=== PATIENT | female | born 1940 | race Caucasian/White ===

== ENCOUNTER 2021-10-04 07:38 | Inpatient (IN) | payer MEDICARE, MEDICAID ==
[~2021-10-04] VITALS: Ht 162.6 cm; Wt 59.9 kg
[2021-10-04] MEDS ORDERED: VANCOMYCIN 1 G PREMIX 200 ML IV ONE (08:15)
[2021-10-04] MEDS ORDERED: SODIUM CHLORIDE 0.9% 1000ML BAG (SEPSIS BOLUS) IV ONE (08:15)
[2021-10-04 08:39] LABS: BASOPHILS % 1.4 % (0.0-2.0); EOSINOPHILS % 4.2 % (0.0-5.0); HEMATOCRIT. 41.8 % (36.0-48.0); HEMOGLOBIN. 14.1 g/dL (12.0-16.0); LYMPHOCYTES % 21.9 % (20.0-50.0); MEAN CORPUSCULAR HEMOGLOBIN 31.6 pg (28.0-32.0); MEAN CORPUSCULAR VOLUME 93.6 fL (81.0-99.0); MEAN PLATELET VOLUME 10.3 fl (7.4-10.4); MONOCYTES % 14.4 % (2.0-8.0); NEUTROPHILS % 58.1 % (40.0-76.0); PLATELET 241 x1000/uL (130-400); RED BLOOD CELL COUNT 4.47 mill/uL (4.2-5.4); RED CELL DISTRIBUTION WIDTH 14.2 % (11.6-14.6)
[2021-10-04 08:46] LABS: CHLORIDE 104 mEq/L (98-107)
[2021-10-04 09:10] LABS: CLARITY URINE CLEAR (CLEAR); COLOR URINE YELLOW (YELLOW); KETONES URINE NEGATIVE (NEGATIVE); LEUKOCYTE ESTERASE URINE TRACE (NEGATIVE); NITRITE URINE POSITIVE (NEGATIVE); OCCULT BLOOD URINE NEGATIVE (NEGATIVE); PH URINE 6.5 (4.5-8.0); PROTEIN URINE NEGATIVE (NEGATIVE); SPECIFIC GRAVITY URINE 1.019 (1.005-1.030); UROBILINOGEN URINE 0.2 E.U./dL (0.2-1.0)
[2021-10-04] MEDS ORDERED: DIATR MEGLU/DIATRIZOATE SOLN 30ML ONE (09:40)
[2021-10-04 16:00] VITALS: BP_SYST 132; BP_SYST 144; BP_DIAS 76; BP_DIAS 81
[2021-10-04 20:00] VITALS: BP 134/72
[2021-10-04 20:03] VITALS: BP 132/76
[2021-10-04] MEDS ORDERED: ONDANSETRON HCL 4MG/2ML INJ IV PRN (20:45)
[2021-10-04] MEDS ORDERED: ACETAMINOPHEN 650MG SUPP PR PRN ×2 (20:45)
[2021-10-04] MEDS: DEXT 5%/0.45% NACL 1000ML 1,000 ML IV SCH (22:36)
[2021-10-05] VITALS: BP 128/68
[2021-10-05 07:01] LABS: HEMATOCRIT. 39.1 % (36.0-48.0); HEMOGLOBIN. 13.5 g/dL (12.0-16.0); MEAN CORPUSCULAR HEMOGLOBIN 32.4 pg (28.0-32.0); MEAN PLATELET VOLUME 10.6 fl (7.4-10.4); PLATELET 246 x1000/uL (130-400); RED BLOOD CELL COUNT 4.16 mill/uL (4.2-5.4); RED CELL DISTRIBUTION WIDTH 14.2 % (11.6-14.6)
[2021-10-05 07:07] LABS: CHLORIDE 105 mEq/L (98-107)
[2021-10-05 08:00] VITALS: BP 122/84
[2021-10-05] MEDS: DEXT 5%/0.45% NACL 1000ML 1,000 ML IV SCH ×2 (09:33→23:42)
[2021-10-05 12:00] VITALS: BP 124/74
[2021-10-05 14:33] LABS: PLATELET ESTIMATE NORMAL
[2021-10-05] MEDS ORDERED: POTASSIUM CHLORIDE INJ 40 MEQ in DEXT 5% WATER 250 ML IV ONE (15:00)
[2021-10-05] MEDS ORDERED: DIATR MEGLU/DIATRIZOATE SOLN 30ML ONE (15:51)
[2021-10-05 16:00] VITALS: BP 147/76
[2021-10-05] MEDS ORDERED: LEVOFLOXACIN 250MG PREMIX 50 ML IV SCH (17:00)
[2021-10-05] MEDS: KCL 20MEQ/100ML PREMIX 100 ML IV SCH ×2 (17:48→23:42)
[2021-10-05 20:00] VITALS: BP 142/91
[2021-10-06] VITALS: BP 142/92
[2021-10-06 04:00] VITALS: BP 124/80
[2021-10-06 08:00] VITALS: BP 142/77
[2021-10-06 08:30] LABS: BASOPHILS % 0.6 % (0.0-2.0); EOSINOPHILS % 1.8 % (0.0-5.0); HEMATOCRIT. 36.5 % (36.0-48.0); HEMOGLOBIN. 12.3 g/dL (12.0-16.0); LYMPHOCYTES % 16.2 % (20.0-50.0); MEAN CORPUSCULAR HEMOGLOBIN 31.8 pg (28.0-32.0); MEAN CORPUSCULAR VOLUME 94.3 fL (81.0-99.0); MEAN PLATELET VOLUME 10.2 fl (7.4-10.4); MONOCYTES % 12.6 % (2.0-8.0); NEUTROPHILS % 68.8 % (40.0-76.0); PLATELET 254 x1000/uL (130-400); RED BLOOD CELL COUNT 3.87 mill/uL (4.2-5.4)
[2021-10-06 08:43] LABS: CHLORIDE 108 mEq/L (98-107)
[2021-10-06 12:00] VITALS: BP 158/87
[2021-10-06] MEDS: DEXT 5%/0.45% NACL 1000ML 1,000 ML IV SCH (12:55)
[2021-10-06] MEDS: SULFAMETHOXAZOLE/TRIMETHOPRIM 800/160MG TABLET GT SCH ×2 (13:21→20:43)
[2021-10-06 16:00] VITALS: BP 124/73
[2021-10-06 20:00] VITALS: BP 133/72
[2021-10-07] VITALS: BP 115/78
[2021-10-07 04:00] VITALS: BP 104/77
[2021-10-07 07:13] LABS: BASOPHILS % 0.9 % (0.0-2.0); EOSINOPHILS % 7.2 % (0.0-5.0); HEMATOCRIT. 36.5 % (36.0-48.0); HEMOGLOBIN. 12.3 g/dL (12.0-16.0); LYMPHOCYTES % 26.2 % (20.0-50.0); MEAN CORPUSCULAR HEMOGLOBIN 31.2 pg (28.0-32.0); MEAN CORPUSCULAR VOLUME 92.7 fL (81.0-99.0); MEAN PLATELET VOLUME 10.2 fl (7.4-10.4); MONOCYTES % 14.1 % (2.0-8.0); NEUTROPHILS % 51.6 % (40.0-76.0); PLATELET 239 x1000/uL (130-400); RED BLOOD CELL COUNT 3.94 mill/uL (4.2-5.4); RED CELL DISTRIBUTION WIDTH 13.9 % (11.6-14.6)
[2021-10-07 07:17] LABS: CHLORIDE 104 mEq/L (98-107)
[2021-10-07 08:00] VITALS: BP 110/66
[2021-10-07] MEDS: SULFAMETHOXAZOLE/TRIMETHOPRIM 800/160MG TABLET GT SCH (09:56)
[2021-10-07 10:49] VITALS: BP 137/85
[2021-10-07 12:00] VITALS: BP 137/85
== END 2021-10-07 13:42 | DRG 252 ==
LOC: ER 07:42 → 6EST 09:07 → EDBEDREQ 09:17 → ENRESERV 12:18
PROVIDERS: ADMIT Internal Medicine; ATTEND Internal Medicine
DX: K94.23 Gastrostomy malfunction (principal); F03.90 Unspecified dementia, unspecified severity, without behavioral disturbance, psychotic disturbance, mood disturbance, and anxiety; L03.311 Cellulitis of abdominal wall; D64.9 Anemia, unspecified; E78.00 Pure hypercholesterolemia, unspecified; K21.9 Gastro-esophageal reflux disease without esophagitis; F31.9 Bipolar disorder, unspecified; Y83.8 Other surgical procedures as the cause of abnormal reaction of the patient, or of later complication, without mention of misadventure at the time of the procedure; Y82.8 Other medical devices associated with adverse incidents; R13.10 Dysphagia, unspecified; R14.0 Abdominal distension (gaseous); E87.6 Hypokalemia; Z88.0 Allergy status to penicillin; Y92.89 Other specified places as the place of occurrence of the external cause
CPT/HCPCS: 36415; 71045; 74018; 74021; 80048; 80053; 81003; 82270; 83605; 84145; 85025; 87070; 87077; 87186; 93005; 99291; J1956; J3480; J7030; Q9963